=== PATIENT | male | born 1970 | race Caucasian/White ===

== ENCOUNTER 2016-06-05 20:45 | Day surgery (SDC) | payer BC ==
[~2016-06-05] VITALS: Ht 170.2 cm; Wt 109.2 kg
[~2016-06-05 20:45] MED LIST: ALLP300T PO; NF-ESOM40C PO; OMEP-10 PO; PNT40TEC PO; PROM25SU10 RC; SCR1T PO; SCR1T1 PO; SUCR1TAB36 PO
[2016-06-05] MEDS ORDERED: FAMOTIDINE 20MG/2ML IV (PEPCID) IV STA (21:16)
[2016-06-05] MEDS ORDERED: NS IV 1000 ML 1,000 ML IV ONE (21:16)
[2016-06-05] MEDS ORDERED: fentaNYL INJECTION 100 MCG/2 ML AMP IVP STA ×2 (21:16→22:19)
[2016-06-05 21:23] LABS: BASOPHILS % (AUTO) 0 % (0-10); EOSINOPHILS % (AUTO) 0 % (0-10); LYMPHOCYTES # (AUTO) 2.4 X 10^3 (1.0-4.0); LYMPHOCYTES % (AUTO) 19 % (12-44); MEAN CORPUSCULAR HEMOGLOBIN 30 PG (25-34); MEAN CORPUSCULAR HGB CONC 36 G/DL (32-36); MEAN CORPUSCULAR VOLUME 83 FL (80-99); MEAN PLATELET VOLUME 8.6 FL (7.4-10.4); MONOCYTES # (AUTO) 0.7 X 10^3 (0.0-1.0); MONOCYTES % (AUTO) 6 % (0-12); NEUTROPHILS # (AUTO) 9.3 X 10^3 (1.8-7.8); NEUTROPHILS % (AUTO) 75 % (42-75); PLATELET COUNT 326 10^3/uL (130-400); RED CELL DISTRIBUTION WIDTH 13.8 % (10.0-14.5); WHITE BLOOD COUNT 12.5 10^3/uL (4.3-11.0)
--- NOTE | 2016-06-05 21:26 | ED Abdominal Pain ---
General Chief Complaint: Abdominal/GI Problems Stated Complaint: VOMITING Source of Information: Patient, Family Exam Limitations: Other (anxiety) History of Present Illness Time Seen By Provider: 21:14 Initial Comments Here with report of a month of upper abdominal pain that moves around. It is associated with nausea and vomiting. He has had previous history of similar but had his gallbladder out was relatively pain free for a year. Currently he has therapy for H. pylori infections but states that this is not helping. Denies blood in his vomit. States pain is quite severe right now and needs something for pain. Timing/Duration: Getting Worse, Intermittent, Other (one month) Severity/Quality: Moderate, Severe, Aching, Burning Location: Epigastric Radiation: RLQ, LLQ Activities at Onset: None Modifying Factors: Worsens With Eating Associated Symptoms: No Back Pain, No Chest Pain, No Fever/Chills, Nausea/ VomitingNo Swelling/Mass in Abdomen, No Weakness Allergies and Home Medications Allergies Coded Allergies: No Known Drug Allergies (Unverified , 10/26/09) Home Medications (Reported) Allopurinol 100 Mg Tablet 100 MG PO BID (Reported) Amoxicillin 500 Mg Capsule 1,000 MG PO BID (Reported) Clarithromycin 500 Mg Tablet 500 MG PO BID (Reported) Omeprazole 20 Mg Capsule.dr 30Days 20 MG PO BID (Reported) Promethazine HCl 25 Mg Tablet 12.5 MG PO Q6H PRN PRN NAUSEA/VOMITING (Reported) Review of Systems Constitutional: see HPINo chills, No fever EENTM: No Symptoms Reported Respiratory: No Symptoms Reported Cardiovascular: No Symptoms Reported Gastrointestinal: See HPI Abdominal PainDenies Diarrhea, NauseaDenies Rectal Bleeding, Vomiting Genitourinary: No Symptoms Reported Musculoskeletal: no symptoms reported Skin: no symptoms reported Psychiatric/Neurological: See HPI AnxietyDenies Weakness Endocrine: No Symptoms Reported All Other Systems Reviewed Negative Unless Noted: Yes Past Itzvwkp-Uigeyi-Xikkps Hx Patient Social History Alcohol Use: Occasionally Uses Recreational Drug Use: Yes (marijuana occasional) Smoking Status: Current Everyday Smoker Recent Foreign Travel: No Contact w/Someone Who Travel: No Surgeries HX Surgeries: Yes (lasix eye surgery, ) Surgeries: Gallbladder Respiratory Hx Respiratory Disorders: No Cardiovascular Hx Cardiac Disorders: No Neurological Hx Neurological Disorders: No Reproductive System Hx Reproductive Disorders: Yes Genitourinary Hx Genitourinary Disorders: No Gastrointestinal Hx Gastrointestinal Disorders: Yes Gastrointestinal Disorders: Gastroesophageal Reflux Musculoskeletal Hx Musculoskeletal Disorders: Yes Musculoskeletal Disorders: Gout Endocrine Hx Endocrine Disorders: No HEENT HX ENT Disorders: No Cancer Hx Cancer: No Psychosocial Hx Psychiatric Problems: No Integumentary HX Skin/Integumentary Disorder: No Blood Transfusions Hx Blood Disorders: No Reviewed Nursing Assessment Reviewed/Agree w Nursing PMH: Yes Family Medical History Significant Family History: No Pertinent Family Hx Physical Exam Vital Signs VS - Last 72 Hours, by Label 06/05/16 06/05/16 21:04 22:25 Temp 96.3 96.3 Pulse 82 Resp 20 B/P 148/76 Pulse Ox 97 O2 Delivery Room Air Capillary Refill : General Appearance: WD/WN moderate distress (anxious and crying) HEENT: PERRL/EOMI pharynx normal Neck: full range of motion supple Respiratory: lungs clear normal breath sounds Cardiovascular: regular rate, rhythm no murmur Gastrointestinal: softNo guarding, No rebound, tenderness (epigastric and left upper quadrant) Extremities: non-tender normal inspection Back: normal inspection no CVA tenderness no vertebral tenderness Neurologic/Psychiatric: alert oriented x 3 other (very anxious and crying) Skin: normal color warm/dry Progress/Results/Core Measures Results/Orders Lab Results Laboratory Tests Test 06/05/16 21:13 Range/Units Alanine Aminotransferase (ALT/SGPT) 43 0-55 U/L Albumin 4.6 H 3.2-4.5 G/DL Alkaline Phosphatase 66 40-136 U/L Amylase Level 79 25-125 U/L Anion Gap 12 5-14 MMOL/L Aspartate Amino Transf (AST/SGOT) 21 5-34 U/L BUN/Creatinine Ratio 11 Basophils # (Auto) 0.0 0.0-0.1 10^3/uL Basophils (%) (Auto) 0 0-10 % Blood Urea Nitrogen 11 7-18 MG/DL C-Reactive Protein High Sensitivity 0.41 0.00-0.50 MG/DL Calcium Level 9.7 8.5-10.1 MG/DL Carbon Dioxide Level 25 21-32 MMOL/L Chloride Level 104 98-107 MMOL/L Creatinine 0.99 0.60-1.30 MG/DL Eosinophils # (Auto) 0.0 0.0-0.3 10^3/uL Eosinophils (%) (Auto) 0 0-10 % Estimat Glomerular Filtration Rate > 60 Glucose Level 144 H 70-105 MG/DL Hematocrit 45 40-54 % Hemoglobin 16.3 13.3-17.7 G/DL Lipase 33 8-78 U/L Lymphocytes # (Auto) 2.4 1.0-4.0 X 10^3 Lymphocytes (%) (Auto) 19 12-44 % Magnesium Level 2.1 1.8-2.4 MG/DL Mean Corpuscular Hemoglobin 30 25-34 PG Mean Corpuscular Hemoglobin Concent 36 32-36 G/DL Mean Corpuscular Volume 83 80-99 FL Mean Platelet Volume 8.6 7.4-10.4 FL Monocytes # (Auto) 0.7 0.0-1.0 X 10^3 Monocytes (%) (Auto) 6 0-12 % Neutrophils # (Auto) 9.3 H 1.8-7.8 X 10^3 Neutrophils (%) (Auto) 75 42-75 % Platelet Count 326 130-400 10^3/uL Potassium Level 3.7 3.6-5.0 MMOL/L Red Blood Count 5.40 4.35-5.85 10^6/uL Red Cell Distribution Width 13.8 10.0-14.5 % Sodium Level 141 135-145 MMOL/L Total Bilirubin 0.8 0.1-1.0 MG/DL Total Protein 8.2 6.4-8.2 G/DL White Blood Count 12.5 H 4.3-11.0 10^3/uL My Orders Orders-RAEGAN MARINO MD Amylase (06/05/16 21:16) Cbc With Automated Diff (06/05/16 21:16) Comprehensive Metabolic Panel (06/05/16 21:16) Hs C Reactive Protein (06/05/16 21:16) Lipase (06/05/16 21:16) Magnesium (06/05/16 21:16) Saline Lock/Iv-Start (06/05/16 21:16) Ns Iv 1000 Ml (Sodium Chloride 0.9%) (06/05/16 21:16) Ct Abdomen/Pelvis W (06/05/16 21:16) Ondansetron Injection (Zofran Injectio (06/05/16 21:30) Famotidine Injection (Pepcid Injection) (06/05/16 21:16) Fentanyl Injection (Sublimaze Injection (06/05/16 21:16) Lorazepam Injection (Ativan Injection) (06/05/16 21:30) Iohexol Injection (Omnipaque 350 Mg/Ml 1 (06/05/16 22:00) Ns (Ivpb) (Sodium Chloride 0.9% Ivpb Bag (06/05/16 22:00) Fentanyl Injection (Sublimaze Injection (06/05/16 22:19) Pantoprazole Injection (Protonix Injecti (06/05/16 22:30) Medications Given in ED Current Medications Medications Dose Ordered Sig/Andie Route Start Time Stop Time Status Last Admin Dose Admin Iohexol 100 ml ONCE ONCE IV 06/05/16 22:00 06/05/16 22:01 DC 06/05/16 21:52 100 ML Lorazepam 0.5 mg ONCE ONCE IVP 06/05/16 21:30 06/05/16 21:31 DC 06/05/16 21:25 0.5 MG Ondansetron HCl 4 mg ONCE ONCE IVP 06/05/16 21:30 06/05/16 21:31 DC 06/05/16 21:25 4 MG Pantoprazole 40 mg ONCE ONCE IV 06/05/16 22:30 06/05/16 22:31 06/05/16 22:27 40 MG Sodium Chloride 100 ml ONCE ONCE IV 06/05/16 22:00 06/05/16 22:01 DC 06/05/16 21:52 80 ML Sodium Chloride 1,000 ml @ 0 mls/hr Q0M ONCE IV 06/05/16 21:16 06/05/16 21:18 DC 06/05/16 21:24 999 MLS/HR Vital Signs/I&O Vital Sign - Last 12Hours 06/05/16 06/05/16 21:04 22:25 Temp 96.3 96.3 Pulse 82 Resp 20 B/P 148/76 Pulse Ox 97 O2 Delivery Room Air Progress Note : Progress Note Seen and evaluated. IV, labs, normal saline 1 L bolus, Pepcid 20 mg IV, Zofran 4 mg IV, fentanyl 75 g IV and Ativan 0.[address] abdomen and pelvis with contrast ordered. Monitor patient. 2222: Discussed case with Dr. Diallo. We'll admit the patient for observation overnight and surgical evaluation tomorrow. Patient is having persistent pain. Repeat fentanyl [address] was negative and labs do not indicate any significant findings. I did discuss with him about marijuana use and avoidance as this may be part of the problem. He verbalizes understanding. Diagnostic Imaging Diagonstic Imaging: CT Plain Films/CT/US/NM/MRI: abdomen, pelvis Comments [facility] [place], [place] NAME: [facility]EL[facility] REC#: [id number] PT STATUS: REG ER : 1970 PHYSICIAN: RAEGAN MARINO MD ADMIT DATE: 06/05/16/ER Draft Date of Exam:06/05/16 CT ABDOMEN/PELVIS W PROCEDURE: CT abdomen and pelvis with contrast. TECHNIQUE: Multiple contiguous axial images were obtained through the abdomen and pelvis after administration of intravenous contrast. INDICATION: Abdominal pain. FINDINGS: The previous CT abdomen/pelvis exam of 12/30/14 failed to show any sign of an acute abnormality in the abdomen or pelvis. Reportedly, in the interval since the prior exam, the patient has undergone a cholecystectomy.. On this exam, there is no mass or abscess in the gallbladder fossa. Surgical clips are evident. The liver is not enlarged. The small rounded area of low density in the right lobe of the liver, seen previously, is again evident and no different. Most likely this is a cyst. The spleen, pancreas, adrenals, kidneys, aorta and inferior vena cava show no sign of an acute abnormality. The stomach is partially filled with fluid and consequently difficult to assess. The appendix was visualized and is not abnormally thickened. There are a few diverticula in the sigmoid and descending colon but there is no evidence for acute diverticulitis. There are a few fluid-filled segments of small bowel. This appearance is nonspecific. This could be secondary to a mild ileus, perhaps related to enteritis. There is no pelvic mass or free fluid collection noted. The urinary bladder and prostate gland are grossly unremarkable. Bone windows show no sign of a fracture or of a destructive lesion. The lung bases are clear. IMPRESSION: 1. There are postoperative changes consistent with an interval cholecystectomy. There is no mass or abscess involving the gallbladder fossa. 2. There are a few fluid-filled segments of small bowel present. There is no sign of a bowel obstruction and this appearance is nonspecific. The possibility that there is a mild ileus, perhaps secondary to enteritis, should be considered. There is no acute abnormality in the abdomen or pelvis noted otherwise. 3. There is diverticulosis of the sigmoid and descending colon without evidence for acute diverticulitis. 4. These results were discussed with Dr. Marino in the ER. Dictated on workstation # [id number] Dict: 06/05/16 2159 Trans: 06/05/16 2214 [facility] [id number] Interpreted by: KWASI LUDWIG MD Electronically signed by: Reviewed: Reviewed by Me, Discussed w/Radiologist Departure Communication Time/Spoke to Admitting Phy: 22:17 Impression Impression: Primary Impression: Intractable abdominal pain Disposition: HOME, SELF-CARE Condition: Stable Decision to Admit Reason: Admit from ER (General) Decision to Admit/Date: Jun 05, 2016 Time/Decision to Admit Time: 22:17 Departure-Patient Inst. Referrals: OCTAVIA DIALLO DO (PCP/Family) Primary Care Physician RAEGAN MARINO MD Jun 05, 2016 21:26
[2016-06-05] MEDS ORDERED: ONDANSETRON 4 MG/2 ML (SDV) Z0FRAN IVP ONE (21:30)
[2016-06-05] MEDS ORDERED: LORazepam INJ 2 MG/ML (ATIVAN) VIAL IVP ONE (21:30)
[2016-06-05] MEDS ORDERED: AMOX500C2 PO (21:42)
[2016-06-05] MEDS ORDERED: Ibuprofen (21:42)
[2016-06-05] MEDS ORDERED: ALLO100T PO (21:42)
[2016-06-05] MEDS ORDERED: PROM25TA14 PO (21:42)
[2016-06-05] MEDS ORDERED: CLAR-19 PO (21:42)
[2016-06-05 21:44] LABS: ALANINE AMINOTRANSFERASE 43 U/L (0-55); ALBUMIN 4.6 G/DL (3.2-4.5); AMYLASE 79 U/L (25-125); ANION GAP 12 MMOL/L (5-14); ASPARTATE AMINO TRANSFERASE 21 U/L (5-34); BILIRUBIN,TOTAL 0.8 MG/DL (0.1-1.0); BLOOD UREA NITROGEN 11 MG/DL (7-18); BUN/CREATININE RATIO 11; CALCIUM 9.7 MG/DL (8.5-10.1); CARBON DIOXIDE 25 MMOL/L (21-32); CHLORIDE 104 MMOL/L (98-107); CREATININE SERUM 0.99 MG/DL (0.60-1.30); GFR ESTIMATED > 60; GLUCOSE 144 MG/DL (70-105); LIPASE 33 U/L (8-78); MAGNESIUM 2.1 MG/DL (1.8-2.4); POTASSIUM 3.7 MMOL/L (3.6-5.0); SODIUM 141 MMOL/L (135-145); TOTAL PROTEIN 8.2 G/DL (6.4-8.2); hs C REACTIVE PROTEIN 0.41 MG/DL (0.00-0.50)
[2016-06-05] MEDS ORDERED: IOHEXOL 350 MG/ML 100 ML (OMNIPAQUE 350) VIAL IV ONE (22:00)
[2016-06-05] MEDS ORDERED: NS 100 ML (IVPB) BAG IV ONE (22:00)
--- NOTE | 2016-06-05 22:15 | Diagnostic Imaging Report ---
PROCEDURE: CT abdomen and pelvis with contrast. TECHNIQUE: Multiple contiguous axial images were obtained through the abdomen and pelvis after administration of intravenous contrast. INDICATION: Abdominal pain. FINDINGS: The previous CT abdomen/pelvis exam of 12/30/14 failed to show any sign of an acute abnormality in the abdomen or pelvis. Reportedly, in the interval since the prior exam, the patient has undergone a cholecystectomy.. On this exam, there is no mass or abscess in the gallbladder fossa. Surgical clips are evident. The liver is not enlarged. The small rounded area of low density in the right lobe of the liver, seen previously, is again evident and no different. Most likely this is a cyst. The spleen, pancreas, adrenals, kidneys, aorta and inferior vena cava show no sign of an acute abnormality. The stomach is partially filled with fluid and consequently difficult to assess. The appendix was visualized and is not abnormally thickened. There are a few diverticula in the sigmoid and descending colon but there is no evidence for acute diverticulitis. There are a few fluid-filled segments of small bowel. This appearance is nonspecific. This could be secondary to a mild ileus, perhaps related to enteritis. There is no pelvic mass or free fluid collection noted. The urinary bladder and prostate gland are grossly unremarkable. Bone windows show no sign of a fracture or of a destructive lesion. The lung bases are clear. IMPRESSION: 1. There are postoperative changes consistent with an interval cholecystectomy. There is no mass or abscess involving the gallbladder fossa. 2. There are a few fluid-filled segments of small bowel present. There is no sign of a bowel obstruction and this appearance is nonspecific. The possibility that there is a mild ileus, perhaps secondary to enteritis, should be considered. There is no acute abnormality in the abdomen or pelvis noted otherwise. 3. There is diverticulosis of the sigmoid and descending colon without evidence for acute diverticulitis. 4. These results were discussed with Dr. English in the ER. Dictated by: Dictated on workstation # [id number]
[2016-06-05] MEDS ORDERED: PANTOPRAZOLE 40 MG/10 ML (PROTONIX) VIAL IV ONE (22:30)
[2016-06-05 23:30] VITALS: BP 187/84
[2016-06-06] MEDS ORDERED: CATHETER FLUSH 10 ML SYR IV PRN (00:30)
[2016-06-06] MEDS: ONDANSETRON 4 MG/2 ML (SDV) Z0FRAN IV PRN ×5 (00:41→19:18)
[2016-06-06] MEDS: fentaNYL INJECTION 100 MCG/2 ML AMP IV PRN ×9 (00:41→21:44)
[2016-06-06] MEDS: NS IV 1000 ML 1,000 ML IV SCH ×4 (00:41→20:34)
[2016-06-06 04:25] VITALS: BP 183/82
[2016-06-06] MEDS: CATHETER FLUSH 10 ML SYR IV SCH ×3 (06:00→20:35)
[2016-06-06 06:38] LABS: BASOPHILS % (AUTO) 0 % (0-10); EOSINOPHILS % (AUTO) 0 % (0-10); LYMPHOCYTES # (AUTO) 0.9 X 10^3 (1.0-4.0); LYMPHOCYTES % (AUTO) 10 % (12-44); MEAN CORPUSCULAR HEMOGLOBIN 29 PG (25-34); MEAN CORPUSCULAR HGB CONC 35 G/DL (32-36); MEAN CORPUSCULAR VOLUME 84 FL (80-99); MEAN PLATELET VOLUME 8.9 FL (7.4-10.4); MONOCYTES # (AUTO) 0.2 X 10^3 (0.0-1.0); MONOCYTES % (AUTO) 3 % (0-12); NEUTROPHILS # (AUTO) 8.5 X 10^3 (1.8-7.8); NEUTROPHILS % (AUTO) 88 % (42-75); PLATELET COUNT 302 10^3/uL (130-400); RED BLOOD COUNT 5.37 10^6/uL (4.35-5.85); RED CELL DISTRIBUTION WIDTH 13.8 % (10.0-14.5); WHITE BLOOD COUNT 9.7 10^3/uL (4.3-11.0)
[2016-06-06 07:01] LABS: ALANINE AMINOTRANSFERASE 37 U/L (0-55); ALBUMIN 4.6 G/DL (3.2-4.5); ANION GAP 11 MMOL/L (5-14); ASPARTATE AMINO TRANSFERASE 19 U/L (5-34); BILIRUBIN,TOTAL 0.6 MG/DL (0.1-1.0); BLOOD UREA NITROGEN 9 MG/DL (7-18); BUN/CREATININE RATIO 11; CALCIUM 9.4 MG/DL (8.5-10.1); CARBON DIOXIDE 23 MMOL/L (21-32); CHLORIDE 104 MMOL/L (98-107); CREATININE SERUM 0.79 MG/DL (0.60-1.30); GFR ESTIMATED > 60; GLUCOSE 145 MG/DL (70-105); POTASSIUM 3.9 MMOL/L (3.6-5.0); SODIUM 138 MMOL/L (135-145)
[2016-06-06] MEDS ORDERED: FLU TRIvalent (5 YOA+) 2016-17 (AFLURIA) 0.5 ML IM ONE (07:15)
[2016-06-06 07:49] LABS: BAND NEUTROPHILS 0 %; BASOPHILS % (MANUAL) 1 %; EOSINOPHILS % (MANUAL) 0 %; LYMPHOCYTES % (MANUAL) 5 %; NEUTROPHILS % (MANUAL) 94 %
[2016-06-06 08:00] VITALS: BP 139/88
--- NOTE | 2016-06-06 08:13 | History & Physicial ---
History of Present Illness History of Present Illness Reason for visit/HPI patient has severe abdominal pain with nausea and vomiting. Seen at work at blood tests showing white blood cell count low. Patient put on medicine for H. pylori Patient having diarrhea and vomiting and upper abdominal pain. Patient had surgery gallbladder 2 years ago. Patient last night having severe abdominal pain. This is started before [facility]. Patient has sonogram at [place] previously. Patient never misses work but has missed 10 days work recently due to this abdominal pain. Allergic to medications denies. Medications now on for H. pylori. Surgeries gallbladder and knee. Family history denies asthma TB diabetes heart disease lung disease cancer Date of Admission Jun 05, 2016 at 22:50 I consulted on this patient on 06/06/16 08:09 Attending Physician Ernesto Diallo DO Admitting Physician Ernesto Diallo DO Consult Allergies and Home Medications Allergies Coded Allergies: No Known Drug Allergies (Unverified , 10/26/09) Home Medications (Reported) Allopurinol 100 Mg Tablet 100 MG PO BID (Reported) Amoxicillin 500 Mg Capsule 1,000 MG PO BID (Reported) Clarithromycin 500 Mg Tablet 500 MG PO BID (Reported) Omeprazole 20 Mg Capsule.dr 30Days 20 MG PO BID (Reported) Promethazine HCl 25 Mg Tablet 12.5 MG PO Q6H PRN PRN NAUSEA/VOMITING (Reported) Past Jiggqhj-Ohhnch-[place] Hx Patient Social History Marrital Status: Employed/Student: employed Alcohol Use: Occasionally Uses Recreational Drug Use: Yes (marijuana occasional) Smoking Status: Never a Smoker Physical Abuse Screen: No Sexual Abuse: No Recent Foreign Travel: No Contact w/other who traveled: No Recent Hopitalizations: No (chronic upper abd pain) Recent Infectious Disease Expo: No Seasonal Allergies Seasonal Allergies: No Surgeries HX Surgeries: Yes (lasix eye surgery, ) Surgeries: Gallbladder Respiratory Hx Respiratory Disorders: No Cardiovascular Hx Cardiovascular Disorders: No Neurological Hx Neurological Disorders: No Reproductive System Hx Reproductive Disorders: Yes Genitourinary Hx Genitourinary Disorders: No Gastrointestinal Hx Gastrointestinal Disorders: Yes Gastrointestinal Disorders: Gastroesophageal Reflux Musculoskeletal Hx Musculoskeletal Disorders: Yes Musculoskeletal Disorders: Gout Endocrine Hx Endocrine Disorders: No HEENT HX ENT Disorders: No Cancer Hx Cancer: No Psychosocial Hx Psychiatric Problems: No Integumentary HX Skin/Integumentary Disorder: No Blood Transfusions Hx Blood Disorders: No Reviewed Nursing Assessment Reviewed/Agree w Nursing PMH: Yes Family Medical History Significant Family History: No Pertinent Family Hx Constitutional: dizziness weakness EENTM: no symptoms reported Cardiovascular: no symptoms reported Gastrointestinal: RUQ LUQ Genitourinary: no symptoms reported Physical Exam Vital Signs Vital Sign - Last 12Hours 06/05/16 21:04 Temp 96.3 Pulse 82 Resp 20 B/P 148/76 Pulse Ox 97 O2 Delivery Room Air Capillary Refill : Less Than 3 Seconds General Appearance: No Apparent Distress WD/WN Eyes: Bilateral Eye Normal Inspection HEENT: TMs Normal Normal ENT Inspection Neck: Full Range of Motion Normal Inspection Non Tender Respiratory: Chest Non Tender Lungs Clear Normal Breath Sounds No Accessory Muscle Use No Respiratory Distress Cardiovascular: Regular Rate, Rhythm No Murmur Gastrointestinal: Non Tender Soft Assessment/Plan Assessment and Plan severe abdominal pain. Acute gastroenteritis. Abdominal pain in upper region. Clinical Quality Measures DVT/VTE Risk/Contraindication: Risk Factor Score Per Nursin RFS Level Per Nursing on Admit: 2=Moderate ERNESTO DIALLO DO Jun 06, 2016 08:13
[2016-06-06] MEDS: PANTOPRAZOLE 40 MG/10 ML (PROTONIX) VIAL IV SCH ×2 (08:14→20:34)
[2016-06-06] MEDS ORDERED: FOLI-88 PO (08:42)
[2016-06-06] MEDS: ENOXAPARIN 40 MG/0.4 ML (LOVENOX) SYR SC SCH (10:48)
[2016-06-06 12:00] VITALS: BP 117/66
[2016-06-06 16:00] VITALS: BP 140/86
[2016-06-06 19:56] VITALS: BP 135/87
[2016-06-06] MEDS ORDERED: ZOLPIDEM 5 MG (AMBIEN) TAB PO PRN (21:00)
[2016-06-07] VITALS: BP 119/67
[2016-06-07 04:00] VITALS: BP 121/75
[2016-06-07] MEDS: CATHETER FLUSH 10 ML SYR IV SCH (06:00)
[2016-06-07 06:19] LABS: BASOPHILS % (AUTO) 0 % (0-10); EOSINOPHILS # (AUTO) 0.1 10^3/uL (0.0-0.3); EOSINOPHILS % (AUTO) 1 % (0-10); LYMPHOCYTES # (AUTO) 3.5 X 10^3 (1.0-4.0); LYMPHOCYTES % (AUTO) 39 % (12-44); MEAN CORPUSCULAR HEMOGLOBIN 30 PG (25-34); MEAN CORPUSCULAR HGB CONC 35 G/DL (32-36); MEAN CORPUSCULAR VOLUME 85 FL (80-99); MEAN PLATELET VOLUME 8.7 FL (7.4-10.4); MONOCYTES # (AUTO) 0.5 X 10^3 (0.0-1.0); MONOCYTES % (AUTO) 6 % (0-12); NEUTROPHILS # (AUTO) 4.9 X 10^3 (1.8-7.8); NEUTROPHILS % (AUTO) 54 % (42-75); PLATELET COUNT 271 10^3/uL (130-400); RED BLOOD COUNT 4.75 10^6/uL (4.35-5.85); RED CELL DISTRIBUTION WIDTH 13.9 % (10.0-14.5)
--- NOTE | 2016-06-07 06:38 | CONSULTATION REPORT ---
DATE OF CONSULTATION: 06/06/2016 DIAGNOSIS: Epigastric pain with nausea. HISTORY OF THE PRESENT ILLNESS: I have been asked by Dr. Pineda to see this gentleman admitted with unresolved upper abdominal pain over several months. About two years ago, he developed severe dyskinesia of the gallbladder and obtained relief from laparoscopic cholecystectomy. Over the last several weeks, he has suffered epigastric pain associated with nausea, mainly precipitated by food. PHYSICAL EXAMINATION: On examination he is reasonably comfortable. VITAL SIGNS: His vital signs are stable and he is afebrile. ABDOMINAL EXAMINATION: Reveals mild epigastric tenderness but. DIFFERENTIAL DIAGNOSIS: Would include gastritis, gastric ulcers and H. pylori infection. With these in mind, it is reasonable to perform an upper endoscopy. I have discussed this with him and the procedure is scheduled for 06/07/2016. Job ID: [id number] Dictated Date: 06/06/2016 15:34:51 Oracle Technical Architect Date: 06/07/2016 06:34:20/donnie OWENS
[2016-06-07 06:42] LABS: ALANINE AMINOTRANSFERASE 30 U/L (0-55); ALBUMIN 3.6 G/DL (3.2-4.5); ANION GAP 11 MMOL/L (5-14); ASPARTATE AMINO TRANSFERASE 16 U/L (5-34); BILIRUBIN,TOTAL 0.7 MG/DL (0.1-1.0); BLOOD UREA NITROGEN 13 MG/DL (7-18); BUN/CREATININE RATIO 17; CALCIUM 8.4 MG/DL (8.5-10.1); CARBON DIOXIDE 21 MMOL/L (21-32); CHLORIDE 106 MMOL/L (98-107); CREATININE SERUM 0.77 MG/DL (0.60-1.30); GFR ESTIMATED > 60; GLUCOSE 92 MG/DL (70-105); POTASSIUM 3.6 MMOL/L (3.6-5.0); SODIUM 138 MMOL/L (135-145); TOTAL PROTEIN 6.1 G/DL (6.4-8.2)
[2016-06-07] MEDS ORDERED: MIDAZOLAM 2 MG/2 ML (VERSED) VIAL ONE ×3 (07:12)
[2016-06-07] MEDS ORDERED: fentaNYL INJECTION 100 MCG/2 ML AMP ONE (07:12)
[2016-06-07] MEDS ORDERED: fentaNYL INJECTION 100 MCG/2 ML AMP INJ ONE (07:12)
[2016-06-07] MEDS ORDERED: LIDOCAINE JELLY 2% (XYLOCAINE) 5 ML TUBE ONE (07:13)
[2016-06-07] MEDS ORDERED: HURRICAINE EXT TUBE (BENZOCAINE) ONE (07:13)
[2016-06-07] MEDS ORDERED: NS IV 500 ML 500 ML ONE (07:13)
[2016-06-07] MEDS ORDERED: NS IV 500 ML 500 ML IV PRN (07:15)
[2016-06-07] MEDS: fentaNYL INJECTION 100 MCG/2 ML AMP IVP PRN ×2 (07:21→07:24)
[2016-06-07] MEDS: MIDAZOLAM 2 MG/2 ML (VERSED) VIAL IVP PRN ×3 (07:22→07:28)
--- NOTE | 2016-06-07 07:25 | Pre-Op Note & Conscious Sedat ---
Pre-Operative Progress Note H&P Reviewed The H&P was reviewed, patient examined and no changes noted. Date H&P Reviewed: Jun 07, 2016 Time H&P Reviewed: 07:24 Pre-Op Diagnosis: epigastric pain Conscious Sedation Pre-Proced ASA Class: 2 Airway Mallampati Classification: ([place] appropriate class) I. II. III, IV Lungs Heart ASA score ASA 1: a normal healthy patient ASA 2: a patient with a mild systemic disease (mid diabetes, controlled hypertension, obesity ASA 3: a patient with a severe systemic disease that limits activity (angina , COPD, prior Myocardial infarction) ASA 4: a patient with an incapacitating disease that is a constant threat to life (CHF, renal failure) ASA 5: a moribund patient not expected to survive 24 hrs. (ruptured aneurysm) ASA 6: a declared brain patient whose organs are being harvested. For emergent operations, add the letter E after the classification Grade 2 Sedation Plan: Discussed options with patient/fam Note The patient is an appropriate candidate to undergo the planned procedure, sedation, and anesthesia. The patient immediately re-assessed prior to indication. EVARISTO GALLO MD Jun 07, 2016 7:25 am
--- NOTE | 2016-06-07 07:37 | Progress Note-Post Operative ---
Post-Operative Progess Note Pre-Operative Diagnosis epigastric pain Post-Operative Diagnosis grade 2 esophagitis. Diffuse gastritis. Distal erosions Post-Op Procedure Note Date of Procedure: Jun 07, 2016 Name of Procedure: EGD with antral biopsy Anesthesia Type sedation Specimen(s) collected antral mucosa EVARISTO GALLO MD Jun 07, 2016 7:37 am
[2016-06-07] MEDS ORDERED: PANT40TA2 PO (07:41)
[2016-06-07] MEDS ORDERED: SUCR1TAB36 PO (07:42)
--- NOTE | 2016-06-07 07:43 | Progress Note (SOAP) ---
Subjective Subjective/Events-last exam patient had EGD done this morning and shows gastritis and esophagitis. Patient to be put on proton pump inhibitor and Carafate Objective Exam Vital Signs Date Time Temp Pulse Resp B/P Pulse Ox O2 Delivery O2 Flow Rate FiO2 06/07/16 04:00 97.1 66 18 121/75 96 Room Air 06/07/16 00:00 97.7 66 18 119/67 98 Room Air 06/06/16 21:00 Room Air 06/06/16 19:56 98.1 72 18 135/87 94 Room Air 06/06/16 16:00 98.9 80 18 140/86 96 Room Air 06/06/16 12:00 98.1 73 16 117/66 96 Room Air 06/06/16 09:00 Room Air 06/06/16 08:00 98.0 83 20 139/88 96 Room Air I & O 06/07/16 07:00 Intake Total 2950 ml Output Total 1100 ml Balance 1850 ml Capillary Refill : Less Than 3 Seconds General Appearance: No Apparent Distress WD/WN Results Lab Laboratory Tests 06/07/16 05:18: Alanine Aminotransferase (ALT/SGPT) 30, Albumin 3.6, Alkaline Phosphatase 53, Anion Gap 11, Aspartate Amino Transf (AST/SGOT) 16, BUN/Creatinine Ratio 17, Basophils # (Auto) 0.0, Basophils (%) (Auto) 0, Blood Urea Nitrogen 13, Calcium Level 8.4L, Carbon Dioxide Level 21, Chloride Level 106, Creatinine 0.77, Eosinophils # (Auto) 0.1, Eosinophils (%) (Auto) 1, Estimat Glomerular Filtration Rate > 60, Glucose Level 92, Hematocrit 40, Hemoglobin 14.2, Lymphocytes # (Auto) 3.5, Lymphocytes (%) (Auto) 39, Mean Corpuscular Hemoglobin 30, Mean Corpuscular Hemoglobin Concent 35, Mean Corpuscular Volume 85, Mean Platelet Volume 8.7, Monocytes # (Auto) 0.5, Monocytes (%) (Auto) 6, Neutrophils # (Auto) 4.9, Neutrophils (%) (Auto) 54, Platelet Count 271, Potassium Level 3.6, Red Blood Count 4.75, Red Cell Distribution Width 13.9, Sodium Level 138, Total Bilirubin 0.7, Total Protein 6.1L, White Blood Count 9.0 Assessment/Plan Assessment/Plan Assess & Plan/Chief Complaint had EGD done this morning Diagnosis/Problems: Clinical Quality Measures DVT/VTE Risk/Contraindication: Risk Factor Score Per Nursin RFS Level Per Nursing on Admit: 2=Moderate OCTAVIA DIALLO DO Jun 07, 2016 07:43
--- NOTE | 2016-06-07 07:43 | Discharge Inst-Simple/Standard ---
Discharge Inst-Standard Discharge Medications New, Converted or Re-Newed RX: RX on Chart Patient Instructions/Follow Up Plan of Care/Instructions/FU: follow-up with Dr. Pineda in a week Activity as Tolerated: Yes Discharge Diet: No Restrictions EVARISTO GALLO MD Jun 07, 2016 7:43 am
[2016-06-07] MEDS ORDERED: LIDOCAINE JELLY 2% (XYLOCAINE) 5 ML TUBE MM PRN (07:45)
[2016-06-07] MEDS ORDERED: FLUMAZENIL (ROMAZICON) 0.1 MG/ML 5 ML VIAL INJ PRN (07:45)
[2016-06-07] MEDS ORDERED: HURRICAINE EXT TUBE (BENZOCAINE) XX PRN (07:45)
[2016-06-07] MEDS ORDERED: NALOXONE 0.4 MG/ML 1 ML (NARCAN) VIAL IVP PRN (07:45)
[2016-06-07 08:00] VITALS: BP 136/83
[2016-06-07] MEDS: PANTOPRAZOLE 40 MG/10 ML (PROTONIX) VIAL IV SCH (08:30)
[2016-06-07] MEDS: ENOXAPARIN 40 MG/0.4 ML (LOVENOX) SYR SC SCH (08:31)
[2016-06-07] MEDS ORDERED: SUCRALFATE 1 GM (CARAFATE) TAB PO SCH (09:00)
--- NOTE | 2016-06-07 10:06 | OPERATIVE REPORT ---
PROCEDURE PHYSICIAN: EVARISTO GALLO DATE OF PROCEDURE: 06/07/2016 PROCEDURE: Upper GI endoscopy with antral biopsy. SURGEON: Paramjit INDICATION FOR THE PROCEDURE: This gentleman has been admitted with ongoing epigastric pain, nausea and vomiting. Therefore, an upper endoscopy was felt to be reasonable to evaluate his symptoms. Informed consent was obtained after reviewing the procedure in detail. DESCRIPTION OF PROCEDURE: He was placed in left lateral decubitus position and his vital signs were monitored. Conscious sedation was achieved using Versed and fentanyl. The flexible gastroscope was introduced down the esophagus, past the stomach, into the proximal duodenum. FINDINGS: ESOPHAGUS: Grade 2 esophagitis. STOMACH: 1. Diffuse gastritis of moderate severity. 2. A few distal erosions were found. There was no fran ulceration. Antral biopsy was obtained for Helicobacter status. DUODENUM: Normal. He tolerated the procedure well and was taken back to the nursing area in a stable condition. IMPRESSION: 1. Epigastric pain and nausea. 2. Diffuse gastritis and esophagitis. 3. Helicobacter status pending. Job ID: [id number] Dictated Date: 06/07/2016 07:36:33 Account Information Clerk Date: 06/07/2016 10:02:44 / donnie OWENS
== END 2016-06-07 10:50 | disposition home or self-care (01) ==
LOC: EDUNIT# 20:45 → ER 20:46 → UNDOADMOB 22:50 → 4TH 22:50 → UNDOADMOB 23:35 → 4TH 23:35 → SDC 23:35 → UNDODISOB 06-07 10:50
PROVIDERS: ATTEND Family Medicine
DX: K20.8 Other esophagitis (principal); K29.60 Other gastritis without bleeding; K52.89 Other specified noninfective gastroenteritis and colitis
CPT/HCPCS: 36415; 74177; 80053; 82150; 83690; 83735; 85007; 85025; 85027; 86141; 86677; 96361; 96374; 96375; 96376; G0378

== ENCOUNTER 2018-06-01 12:06 | Emergency (ER) | payer BC ==
[~2018-06-01] VITALS: Ht 170.2 cm; Wt 108.9 kg
[~2018-06-01 12:06] MED LIST changes: +ALLO100T PO; +AMOX500C2 PO; +CLAR-19 PO; +FOLI-88 PO; +Ibuprofen; +PANT40TA2 PO; +PROM25TA14 PO
--- OUTSIDE RECORDS SUMMARY | 2018-06-01 12:12 | XMS REPORT | Continuity of Care Document ---
Author Author [facility] Organization [facility] Address Unknown Phone Unavailable Allergies Active Description Code Type Severity Reaction Onset Reported/Identified Relationship to Patient Clinical Status Yes NO KNOWN DRUG ALLERGIES UNKNOWN NO KNOWN DRUG ALLERG Yes No Known Drug Allergies [id number] Drug Allergy Unknown N/A 10/26/2009 Medications Medication Packaging Start Date Stop Date Route Dosage Sig FAMOTIDINE VIAL INJ 20 MG/2CC (PEPCID VIAL) MG 05/27/2018 05/27/2018 ONCE&1158 ONDANSETRON VIAL INJ 4 MG/2CC (ZOFRAN 2CC VIAL) MG 05/27/2018 05/27/2018 PRN ONCE LORAZEPAM 1CC VIAL INJ 2 MG/CC (ATIVAN VIAL) MG 05/27/2018 05/27/2018 PRN ONCE NORMAL SALINE 1000CC IV BAG INJ 0.9 % (NS 1000CC IV BAG) ml 05/27/2018 06/11/2018 CONTINUOUSEVERY 0 Hour FENTANYL INJ 100 MCG/2CC VIAL MCG 05/27/2018 05/27/2018 ONCE&1231 Problems Date Dx Coded Attending Type Code Diagnosis Diagnosed By 01/09/2015 EDUARDO IRENE APRN Ot 305.20 CANNABIS ABUSE-UNSPEC 01/09/2015 EDUARDO IRENE APRN Ot 787.01 NAUSEA WITH VOMITING 02/02/2015 TREVOR MCGARRY DO Ot 789.00 06/05/2016 TREVOR MCGARRY DO Ot 789.00 ABDOMINAL PAIN, UNSPECIFIED SITE 06/07/2016 OCTAVIA DIALLO DO Ot K20.8 OTHER ESOPHAGITIS 06/07/2016 OCTAVIA DIALLO DO Ot K29.60 OTHER GASTRITIS WITHOUT BLEEDING 06/07/2016 OCTAVIA DIALLO DO Ot K52.89 OTHER SPECIFIED NONINFECTIVE GASTROENTER 06/11/2016 OCTAVIA DIALLO DO Ot K20.8 OTHER ESOPHAGITIS 06/11/2016 OCTAVIA DIALLO DO Ot K29.60 OTHER GASTRITIS WITHOUT BLEEDING 06/11/2016 GELLENDER OCTAVIA NOBLE Ot K52.89 OTHER SPECIFIED NONINFECTIVE GASTROENTER 06/14/2016 OCTAVIA DIALLO DO Ot K20.8 OTHER ESOPHAGITIS 06/14/2016 GELLENDER DOOCTAVIA Ot K29.60 OTHER GASTRITIS WITHOUT BLEEDING 06/14/2016 MICHELLELENDER OCTAVIA NOBLE Ot K52.89 OTHER SPECIFIED NONINFECTIVE GASTROENTER Procedures There is no data. Results Test Result Range Complete blood count (CBC) with automated white blood cell (WBC) differential - 06/05/16 21:13 Blood leukocytes automated count (number/volume) 12.5 10*3/uL 4.3-11.0 Blood erythrocytes automated count (number/volume) 5.40 10*6/uL 4.35-5.85 Venous blood hemoglobin measurement (mass/volume) 16.3 g/dL 13.3-17.7 Blood hematocrit (volume fraction) 45 % 40-54 Automated erythrocyte mean corpuscular volume 83 [foz_us] 80-99 Automated erythrocyte mean corpuscular hemoglobin (mass per erythrocyte) 30 pg 25-34 Automated erythrocyte mean corpuscular hemoglobin concentration measurement ( mass/volume) 36 g/dL 32-36 Automated erythrocyte distribution width ratio 13.8 % 10.0-14.5 Automated blood platelet count (count/volume) 326 10*3/uL 130-400 Automated blood platelet mean volume measurement 8.6 [foz_us] 7.4-10.4 Automated blood neutrophils/100 leukocytes 75 % 42-75 Automated blood lymphocytes/100 leukocytes 19 % 12-44 Blood monocytes/100 leukocytes 6 % 0-12 Automated blood eosinophils/100 leukocytes 0 % 0-10 Automated blood basophils/100 leukocytes 0 % 0-10 Blood neutrophils automated count (number/volume) 9.3 10*3 1.8-7.8 Blood lymphocytes automated count (number/volume) 2.4 10*3 1.0-4.0 Blood monocytes automated count (number/volume) 0.7 10*3 0.0-1.0 Automated eosinophil count 0.0 10*3/uL 0.0-0.3 Automated blood basophil count (count/volume) 0.0 10*3/uL 0.0-0.1 Comprehensive metabolic panel - 06/05/16 21:13 Serum or plasma sodium measurement (moles/volume) 141 mmol/L 135-145 Serum or plasma potassium measurement (moles/volume) 3.7 mmol/L 3.6-5.0 Serum or plasma chloride measurement (moles/volume) 104 mmol/L 98-107 Carbon dioxide 25 mmol/L 21-32 Serum or plasma anion gap determination (moles/volume) 12 mmol/L 5-14 Serum or plasma urea nitrogen measurement (mass/volume) 11 mg/dL 7-18 Serum or plasma creatinine measurement (mass/volume) 0.99 mg/dL 0.60-1.30 Serum or plasma urea nitrogen/creatinine mass ratio 11 NRG Serum or plasma creatinine measurement with calculation of estimated glomerular filtration rate > NRG Serum or plasma glucose measurement (mass/volume) 144 mg/dL 70-105 Serum or plasma calcium measurement (mass/volume) 9.7 mg/dL 8.5-10.1 Serum or plasma total bilirubin measurement (mass/volume) 0.8 mg/dL 0.1-1.0 Serum or plasma alkaline phosphatase measurement (enzymatic activity/volume) 66 U/L 40-136 Serum or plasma aspartate aminotransferase measurement (enzymatic activity/ volume) 21 U/L 5-34 Serum or plasma alanine aminotransferase measurement (enzymatic activity/volume ) 43 U/L 0-55 Serum or plasma protein measurement (mass/volume) 8.2 g/dL 6.4-8.2 Serum or plasma albumin measurement (mass/volume) 4.6 g/dL 3.2-4.5 Magnesium - 06/05/16 21:13 Magnesium 2.1 mg/dL 1.8-2.4 Serum or plasma amylase measurement (enzymatic activity/volume) - 06/05/16 21: 13 Serum or plasma amylase measurement (enzymatic activity/volume) 79 U /L 25-125 Lipase - 06/05/16 21:13 Lipase 33 U/L 8-78 Serum or plasma C reactive protein measurement (mass/volume) - 06/05/16 21:13 Serum or plasma C reactive protein measurement (mass/volume) 0.41 mg /dL 0.00-0.50 Complete blood count (CBC) with automated white blood cell (WBC) differential - 06/06/16 06:12 Blood leukocytes automated count (number/volume) 9.7 10*3/uL 4.3-11.0 Blood erythrocytes automated count (number/volume) 5.37 10*6/uL 4.35-5.85 Venous blood hemoglobin measurement (mass/volume) 15.8 g/dL 13.3-17.7 Blood hematocrit (volume fraction) 45 % 40-54 Automated erythrocyte mean corpuscular volume 84 [foz_us] 80-99 Automated erythrocyte mean corpuscular hemoglobin (mass per erythrocyte) 29 pg 25-34 Automated erythrocyte mean corpuscular hemoglobin concentration measurement ( mass/volume) 35 g/dL 32-36 Automated erythrocyte distribution width ratio 13.8 % 10.0-14.5 Automated blood platelet count (count/volume) 302 10*3/uL 130-400 Automated blood platelet mean volume measurement 8.9 [foz_us] 7.4-10.4 Automated blood neutrophils/100 leukocytes 88 % 42-75 Automated blood lymphocytes/100 leukocytes 10 % 12-44 Blood monocytes/100 leukocytes 3 % 0-12 Automated blood eosinophils/100 leukocytes 0 % 0-10 Automated blood basophils/100 leukocytes 0 % 0-10 Blood neutrophils automated count (number/volume) 8.5 10*3 1.8-7.8 Blood lymphocytes automated count (number/volume) 0.9 10*3 1.0-4.0 Blood monocytes automated count (number/volume) 0.2 10*3 0.0-1.0 Automated eosinophil count 0.0 10*3/uL 0.0-0.3 Automated blood basophil count (count/volume) 0.0 10*3/uL 0.0-0.1 Comprehensive metabolic panel - 06/06/16 06:12 Serum or plasma sodium measurement (moles/volume) 138 mmol/L 135-145 Serum or plasma potassium measurement (moles/volume) 3.9 mmol/L 3.6-5.0 Serum or plasma chloride measurement (moles/volume) 104 mmol/L 98-107 Carbon dioxide 23 mmol/L 21-32 Serum or plasma anion gap determination (moles/volume) 11 mmol/L 5-14 Serum or plasma urea nitrogen measurement (mass/volume) 9 mg/dL 7-18 Serum or plasma creatinine measurement (mass/volume) 0.79 mg/dL 0.60-1.30 Serum or plasma urea nitrogen/creatinine mass ratio 11 NRG Serum or plasma creatinine measurement with calculation of estimated glomerular filtration rate > NRG Serum or plasma glucose measurement (mass/volume) 145 mg/dL 70-105 Serum or plasma calcium measurement (mass/volume) 9.4 mg/dL 8.5-10.1 Serum or plasma total bilirubin measurement (mass/volume) 0.6 mg/dL 0.1-1.0 Serum or plasma alkaline phosphatase measurement (enzymatic activity/volume) 72 U/L 40-136 Serum or plasma aspartate aminotransferase measurement (enzymatic activity/ volume) 19 U/L 5-34 Serum or plasma alanine aminotransferase measurement (enzymatic activity/volume ) 37 U/L 0-55 Serum or plasma protein measurement (mass/volume) 8.0 g/dL 6.4-8.2 Serum or plasma albumin measurement (mass/volume) 4.6 g/dL 3.2-4.5 Blood manual differential performed detection - 06/06/16 06:12 Blood monocytes/100 leukocytes 0 % NRG Manual blood segmented neutrophils/100 leukocytes 94 % NRG Blood band neutrophils/100 leukocytes 0 % NRG Manual blood lymphocytes/100 leukocytes 5 % NRG Manual eosinophils/100 leukocytes in nose 0 % NRG Manual blood basophils/100 leukocytes 1 % NRG Blood erythrocyte morphology finding identification NORMAL NR Serum Helicobacter pylori antibody assay (units/volume) - 06/06/16 06:12 Helicobacter pylori ab [units/volume] in serum 0.38 u[iU]/mL 0.00-0.89 Complete blood count (CBC) with automated white blood cell (WBC) differential - 06/07/16 05:18 Blood leukocytes automated count (number/volume) 9.0 10*3/uL 4.3-11.0 Blood erythrocytes automated count (number/volume) 4.75 10*6/uL 4.35-5.85 Venous blood hemoglobin measurement (mass/volume) 14.2 g/dL 13.3-17.7 Blood hematocrit (volume fraction) 40 % 40-54 Automated erythrocyte mean corpuscular volume 85 [foz_us] 80-99 Automated erythrocyte mean corpuscular hemoglobin (mass per erythrocyte) 30 pg 25-34 Automated erythrocyte mean corpuscular hemoglobin concentration measurement ( mass/volume) 35 g/dL 32-36 Automated erythrocyte distribution width ratio 13.9 % 10.0-14.5 Automated blood platelet count (count/volume) 271 10*3/uL 130-400 Automated blood platelet mean volume measurement 8.7 [foz_us] 7.4-10.4 Automated blood neutrophils/100 leukocytes 54 % 42-75 Automated blood lymphocytes/100 leukocytes 39 % 12-44 Blood monocytes/100 leukocytes 6 % 0-12 Automated blood eosinophils/100 leukocytes 1 % 0-10 Automated blood basophils/100 leukocytes 0 % 0-10 Blood neutrophils automated count (number/volume) 4.9 10*3 1.8-7.8 Blood lymphocytes automated count (number/volume) 3.5 10*3 1.0-4.0 Blood monocytes automated count (number/volume) 0.5 10*3 0.0-1.0 Automated eosinophil count 0.1 10*3/uL 0.0-0.3 Automated blood basophil count (count/volume) 0.0 10*3/uL 0.0-0.1 Comprehensive metabolic panel - 06/07/16 05:18 Serum or plasma sodium measurement (moles/volume) 138 mmol/L 135-145 Serum or plasma potassium measurement (moles/volume) 3.6 mmol/L 3.6-5.0 Serum or plasma chloride measurement (moles/volume) 106 mmol/L 98-107 Carbon dioxide 21 mmol/L 21-32 Serum or plasma anion gap determination (moles/volume) 11 mmol/L 5-14 Serum or plasma urea nitrogen measurement (mass/volume) 13 mg/dL 7-18 Serum or plasma creatinine measurement (mass/volume) 0.77 mg/dL 0.60-1.30 Serum or plasma urea nitrogen/creatinine mass ratio 17 NRG Serum or plasma creatinine measurement with calculation of estimated glomerular filtration rate > NRG Serum or plasma glucose measurement (mass/volume) 92 mg/dL 70-105 Serum or plasma calcium measurement (mass/volume) 8.4 mg/dL 8.5-10.1 Serum or plasma total bilirubin measurement (mass/volume) 0.7 mg/dL 0.1-1.0 Serum or plasma alkaline phosphatase measurement (enzymatic activity/volume) 53 U/L 40-136 Serum or plasma aspartate aminotransferase measurement (enzymatic activity/ volume) 16 U/L 5-34 Serum or plasma alanine aminotransferase measurement (enzymatic activity/volume ) 30 U/L 0-55 Serum or plasma protein measurement (mass/volume) 6.1 g/dL 6.4-8.2 Serum or plasma albumin measurement (mass/volume) 3.6 g/dL 3.2-4.5 Urinalysis - 05/27/18 11:58 Icotest N/A Negative Urine Volume Urine Volume Sufficient (10mL) Urine Yeast No Yeast present Urine-Appearance Slightly Cloudy Clear Urine-Bacteria Trace Urine-Bilirubin Negative Negative Urine-Blood Trace-intact Negative Urine-Color Yellow Colorless-Lt. Yellow Urine-Epithelial Cells 0-5/HPF Urine-Glucose Negative Negative Urine-Ketones 2+ Negative Urine-Leukocytes Negative Negative Urine-Mucus 3+ Urine-Nitrite Negative Negative Urine-Other Urine Saved if Culture Needed (48hrs from time of collection) Urine-pH 6.0 5-8.5 Urine-Protein Negative Negative Urine-RBC 0-2/HPF Urine-Specific [place] 1.010 1.000-1.030 Urine-WBC Rare/HPF Urobilinogen 0.2 0.2-1.0 Comprehensive Metabolic Panel - 05/27/18 12:06 Albumin 4.7 g/dL 3.6-5.1 ALP 66 U/L 35-130 ALT 77 U/L 6-45 Anion Gap 17 6-14 AST 35 U/L 2-40 BUN 14 mg/dL 5-25 Calcium 9.5 mg/dL 8.3-10.4 Chloride 102 mmol/L 95-114 CO2 24 mEq/L 22-33 Creat 0.87 mg/dL 0.50-1.50 eGFR 93 mL/min/1.73m2 >59 Globulin 3.6 g/dL 2.3-3.5 Glucose 115 mg/dL 70-110 Osmo 288 280-295 Potassium 4.0 mmol/L 3.5-5.3 Sodium 139 mmol/L 134-148 TBil 0.8 mg/dL 0.2-1.2 TP 8.3 g/dL 6.0-8.3 Lipase - 05/27/18 12:06 Lipase 27 U/L 7-59 Encounters ACCT No. Visit Date/Time Discharge Status Pt. Type Provider Facility Loc./Unit Complaint [id number] 06/05/2016 23:35:00 06/07/2016 10:50:00 DIS Outpatient OCTAVIA IDALLO DO [facility] SDC INTRACTABLE ABD PAIN [id number] 01/19/2015 08:25:00 01/19/2015 23:59:59 CLS Outpatient TREVOR MCGARRY DO [facility] CARD ABD PAIN [id number] 01/09/2015 16:18:00 01/09/2015 18:26:00 DIS Emergency EDUARDO IRENE APRN [facility] ER VOMITING [id number] 05/27/2018 11:48:00 05/27/2018 14:12:00 DIS Outpatient [facility] ER [id number] 05/14/2016 09:07:00 05/14/2016 23:59:00 DIS Outpatient ROMERO SIDDIQUI [id number] 05/27/2018 12:02:11 Document Registration [email or web address] 01/19/2015 08:20:22 ACT Document Registration
[2018-06-01 12:58] LABS: BASOPHILS % (AUTO) 0 % (0-10); EOSINOPHILS % (AUTO) 0 % (0-10); HEMATOCRIT 43 % (40-54); HEMOGLOBIN 15.4 G/DL (13.3-17.7); LYMPHOCYTES # (AUTO) 2.4 X 10^3 (1.0-4.0); LYMPHOCYTES % (AUTO) 24 % (12-44); MEAN CORPUSCULAR HEMOGLOBIN 30 PG (25-34); MEAN CORPUSCULAR HGB CONC 36 G/DL (32-36); MEAN CORPUSCULAR VOLUME 84 FL (80-99); MEAN PLATELET VOLUME 9.2 FL (7.4-10.4); MONOCYTES # (AUTO) 0.7 X 10^3 (0.0-1.0); MONOCYTES % (AUTO) 8 % (0-12); NEUTROPHILS # (AUTO) 6.5 X 10^3 (1.8-7.8); NEUTROPHILS % (AUTO) 67 % (42-75); PLATELET COUNT 272 10^3/uL (130-400); RED BLOOD COUNT 5.08 10^6/uL (4.35-5.85); RED CELL DISTRIBUTION WIDTH 13.9 % (10.0-14.5); WHITE BLOOD COUNT 9.7 10^3/uL (4.3-11.0)
--- NOTE | 2018-06-01 12:58 | ED Abdominal Pain ---
General Chief Complaint: Abdominal/GI Problems Stated Complaint: N/V Nursing Triage Note: PATIENT HERE WITH REPORTS OF N/V AND ABD PAIN SINCE 05/19.HE STATES HE WENT TO [place] ON 05/27 AND WAS DIAGNOSED WITH GASTRITIS. HE WAS PRESCRIBED ZOFRAN, SUCRAFATE AND PROTONIX BUT HAS NOT HAD ANY RELIEF. HE THEN WENT TO [facility] LAST FRIDAY FOR THE SAME PROBLEM, THEY ALSO TOLD HIM HE HAD GASTRITIS AND TO CONTINUE MEDS. HE COMES TO THE ER BY POV TODAY BECAUSE HE HAS NOT IMPROVED AND REPORTS SHE IS CONCERNED THAT HE IS LOSING WEIGHT FROM NOT EATING ENOUGH FOOD. Sepsis Screen: No Definite Risk Source of Information: Patient, Spouse Exam Limitations: No Limitations History of Present Illness Date Seen by Provider: Jun 01, 2018 Time Seen by Provider: 12:43 Initial Comments The patient presents to ER by private conveyance with chief complaint of abdominal pain and nausea and vomiting and decreased appetite and intake for the past 12 days. He went to [place] [facility] and they gave him Carafate, omeprazole and Zofran. He's been taking the Zofran about 3 or 4 times a day but states it does not work. He does not know that he's ever had a EGD or colonoscopy. Denies any history of irritable bowel syndrome. He went to the ER [facility] where they gave him dicyclomine told him it was gastroenteritis. He was recommended to go follow-up and get a EGD done. He had an appointment with Dr. Beavers today at 2 :00 to discuss getting EGD done. This doctor has seen him in the past. He's had no fevers or chills. No history of pancreatitis. He does drink whiskey occasionally his last drink was about 2 months ago. He does not know his triglycerides are does not have a history of diabetes. He has a gallbladder out in 2014. No known history of ulcers, PUD. Not eating much and he says he just drinks fluids and sometimes stays down and sometimes it does not. He's been having loose stools but his last stool was 2 days ago. Allergies and Home Medications Allergies Coded Allergies: No Known Drug Allergies (Unverified , 10/26/09) Home Medications Allopurinol 100 Mg Tablet, 100 MG PO BID, (Reported) Folic Acid/Multivit-Min/Lutein 1 Each Tab.chew, 1 TAB.CHEW PO DAILY, (Reported) Pantoprazole Sodium 40 Mg Tablet.dr, 40 MG PO DAILY Prescribed by: EVARISTO GALLO on 06/07/16 0741 Sucralfate 1 Gm Tablet, 1 GM PO TID Prescribed by: EVARISTO GALLO on 06/07/16 0742 Patient Home Medication List Home Medication List Reviewed: Yes Review of Systems Review of Systems Constitutional: No chills, No diaphoresis EENTM: No Blurred Vision, No Double Vision Respiratory: Denies Cough, Denies Shortness of Air Cardiovascular: Denies Chest Pain, Denies Lightheadedness Gastrointestinal: See HPI, Abdominal Pain, Diarrhea, Nausea, Poor Appetite, Poor Fluid Intake, Vomiting Genitourinary: Denies Discharge, Denies Drainage Musculoskeletal: No back pain, No joint swelling Past Sulposx-Vzqshg-Efargb Hx Patient Social History Alcohol Use: Occasionally Uses Alcohol Beverage of Choice: Whiskey Recreational Drug Use: No Smoking Status: Former Smoker 2nd Hand Smoke Exposure: No Recent Foreign Travel: No Contact w/Someone Who Travel: No Recent Infectious Disease Expo: No Recent Hopitalizations: No (chronic upper abd pain) Physical Abuse: No Sexual Abuse: No Seasonal Allergies Seasonal Allergies: No Past Medical History Surgeries: Yes (lasix eye surgery, ) Gallbladder Respiratory: No Cardiac: No Neurological: No Reproductive Disorders: Yes Genitourinary: No Gastrointestinal: Yes Gastroesophageal Reflux Musculoskeletal: Yes Gout Endocrine: No HEENT: No Cancer: No Psychosocial: No Integumentary: No Blood Disorders: No Family Medical History No Pertinent Family Hx Physical Exam Vital Signs Vital Signs - First Documented 06/01/18 12:15 Temp 98.4 Pulse 82 Resp 20 B/P (MAP) 153/103 (120) Pulse Ox 97 Capillary Refill : Less Than 3 Seconds Height/Weight/BMI Height: 5'7.00" Weight: 240lbs. 0oz. 108.274948lq; 39.1 BMI Method:Stated General Appearance: WD/WN, mild distress HEENT: PERRL/EOMI, pharynx normal Respiratory: no respiratory distress, no accessory muscle use Cardiovascular: normal peripheral pulses, regular rate, rhythm Peripheral Pulses: 2+ Radial Pulses (R), 2+ Radial Pulses (L) Gastrointestinal: normal bowel sounds, soft, guarding (mild); No rebound; tenderness (epigastric) Extremities: normal inspection, normal capillary refill Neurologic/Psychiatric: alert, oriented x 3, other (anxious) Progress/Results/Core Measures Results/Orders Lab Results Laboratory Tests Test 06/01/18 12:30 Range/Units White Blood Count 9.7 4.3-11.0 10^3/uL Red Blood Count 5.08 4.35-5.85 10^6/uL Hemoglobin 15.4 13.3-17.7 G/DL Hematocrit 43 40-54 % Mean Corpuscular Volume 84 80-99 FL Mean Corpuscular Hemoglobin 30 25-34 PG Mean Corpuscular Hemoglobin Concent 36 32-36 G/DL Red Cell Distribution Width 13.9 10.0-14.5 % Platelet Count 272 130-400 10^3/uL Mean Platelet Volume 9.2 7.4-10.4 FL Neutrophils (%) (Auto) 67 42-75 % Lymphocytes (%) (Auto) 24 12-44 % Monocytes (%) (Auto) 8 0-12 % Eosinophils (%) (Auto) 0 0-10 % Basophils (%) (Auto) 0 0-10 % Neutrophils # (Auto) 6.5 1.8-7.8 X 10^3 Lymphocytes # (Auto) 2.4 1.0-4.0 X 10^3 Monocytes # (Auto) 0.7 0.0-1.0 X 10^3 Eosinophils # (Auto) 0.0 0.0-0.3 10^3/uL Basophils # (Auto) 0.0 0.0-0.1 10^3/uL Sodium Level 135 135-145 MMOL/L Potassium Level 3.7 3.6-5.0 MMOL/L Chloride Level 100 98-107 MMOL/L Carbon Dioxide Level 23 21-32 MMOL/L Anion Gap 12 5-14 MMOL/L Blood Urea Nitrogen 15 7-18 MG/DL Creatinine 0.89 0.60-1.30 MG/DL Estimat Glomerular Filtration Rate > 60 BUN/Creatinine Ratio 17 Glucose Level 161 H 70-105 MG/DL Calcium Level 9.1 8.5-10.1 MG/DL Corrected Calcium 8.9 8.5-10.1 MG/DL Magnesium Level 2.4 1.8-2.4 MG/DL Total Bilirubin 0.9 0.1-1.0 MG/DL Aspartate Amino Transf (AST/SGOT) 28 5-34 U/L Alanine Aminotransferase (ALT/SGPT) 45 0-55 U/L Alkaline Phosphatase 58 40-136 U/L Total Protein 8.1 6.4-8.2 GM/DL Albumin 4.3 3.2-4.5 GM/DL Lipase 33 8-78 U/L My Orders Orders - TRISTIN JACOBSON Cbc With Automated Diff (06/01/18 12:47) Comprehensive Metabolic Panel (06/01/18 12:47) Drug Screen Stat (Urine) (06/01/18 12:47) Lipase (06/01/18 12:47) Magnesium (06/01/18 12:47) Ua Culture If Indicated (06/01/18 12:47) Saline Lock/Iv-Start (06/01/18 12:47) Lactated Ringers (Lr 1000 Ml Iv Solution (06/01/18 13:00) Ketorolac Injection (Toradol Injection) (06/01/18 13:00) Ondansetron Injection (Zofran Injectio (06/01/18 13:00) Promethazine Injection (Phenergan Injec (06/01/18 15:15) Medications Given in ED Current Medications Medications Dose Ordered Sig/Andie Route Start Time Stop Time Status Last Admin Dose Admin Ketorolac Tromethamine 30 mg ONCE ONCE IVP 06/01/18 13:00 06/01/18 13:01 DC 06/01/18 13:11 30 MG Lactated Ringer's 2,000 ml @ 2,000 mls/hr PRN PRN IV 06/01/18 13:00 06/01/18 13:12 2,000 MLS/HR Ondansetron HCl 8 mg ONCE ONCE IVP 06/01/18 13:00 06/01/18 13:01 DC 06/01/18 13:12 8 MG Promethazine HCl 25 mg ONCE ONCE IVP 06/01/18 15:15 06/01/18 15:16 DC 06/01/18 15:09 25 MG Vital Signs/I&O 06/01/18 12:15 Temp 98.4 Pulse 82 Resp 20 B/P (MAP) 153/103 (120) Pulse Ox 97 Blood Pressure Mean: 120 Progress Progress Note #1: Time: 13:00 Progress Note The patient's only mildly dry and appearance. We'll going give him 20 cc/kg bolus of fluids and obtain some labs to include a lipase. We will do 8 of Zofran and 30 of Toradol. If this does not help his symptoms then we can obtain CT of the abdomen. Expect an EGD would be most helpful in his diagnosis. Progress Note #2: Time: 16:49 Progress Note After receiving his full fluid bolus, Zofran and Phenergan he feels like he can do better at home with sublingual nausea medicine and Phenergan. We will get him follow-up with Dr. Gallo for outpatient endoscopy and management of his gastritis. We have offered him a stay for intractable nausea vomiting and IV fluids overnight. I suspect that his primary care doctor who sent him here would be amenable to this however the patient has declined this and says he would rather trying go home and just follow up outpatient tomorrow in the clinic. Consults : Consulting Physician: EVARISTO GALLO MD Consults Notes Discussed case lab and he agrees to see the patient at 10 o'clock tomorrow morning. Departure Impression Primary Impression: Gastritis Qualified Codes: K29.00 - Acute gastritis without bleeding Additional Impression: Nausea and vomiting Qualified Codes: R11.2 - Nausea with vomiting, unspecified Disposition: 01 HOME, SELF-CARE Condition: Improved Departure-Patient Inst. Decision time for Depature: 17:02 Referrals: OCTAVIA DIALLO DO (PCP/Family) Primary Care Physician EVARISTO GALLO MD Patient Instructions: Gastritis (DC) Add. Discharge Instructions: Present to Dr. Gallo office tomorrow before 10:00 AM for an appointment to discuss your symptoms and manage them. Take the Zofran 1 tablet under the tongue every 4 hours as needed to control your nausea. If you need something extra you may take the Phenergan 1 tablet every 6 hours as needed. Use Tylenol and/or Motrin for pain relief. All discharge instructions reviewed with patient and/or family. Voiced understanding. Scripts Promethazine HCl (Promethazine Tablet) 25 Mg Tablet 25 MG PO Q6H PRN for NAUSEA/VOMITING for 7 Days, #10 TAB Prov: TRISTIN JACOBSON 06/01/18 Ondansetron (Ondansetron Odt) 4 Mg Tab.rapdis 4 MG PO Q4H PRN for NAUSEA/VOMITING, #20 TAB 0 Refills Prov: TRISTIN JACOBSON 06/01/18 Copy Copies To 1: EVARISTO GALLO MD, TITUS J Jun 01, 2018 12:58
[2018-06-01] MEDS ORDERED: KETOROLAC 30 MG/ML VIAL IVP ONE (13:00)
[2018-06-01] MEDS ORDERED: LACTATED RINGERS 2,000 ML IV PRN (13:00)
[2018-06-01] MEDS ORDERED: ONDANSETRON 4 MG/2 ML (SDV) Z0FRAN IVP ONE (13:00)
[2018-06-01 13:14] LABS: ALANINE AMINOTRANSFERASE 45 U/L (0-55); ALBUMIN 4.3 GM/DL (3.2-4.5); ALKALINE PHOSPHATASE 58 U/L (40-136); BILIRUBIN,TOTAL 0.9 MG/DL (0.1-1.0); BUN/CREATININE RATIO 17; CALCIUM 9.1 MG/DL (8.5-10.1); CARBON DIOXIDE 23 MMOL/L (21-32); CHLORIDE 100 MMOL/L (98-107); CREATININE SERUM 0.89 MG/DL (0.60-1.30); GFR ESTIMATED > 60; GLUCOSE 161 MG/DL (70-105); LIPASE 33 U/L (8-78); MAGNESIUM 2.4 MG/DL (1.8-2.4); POTASSIUM 3.7 MMOL/L (3.6-5.0); SODIUM 135 MMOL/L (135-145); TOTAL PROTEIN 8.1 GM/DL (6.4-8.2)
[2018-06-01] MEDS ORDERED: PROMETHAZINE INJ 25 MG/ML (PHENERGAN) AMP IVP ONE (15:15)
[2018-06-01] MEDS ORDERED: ONDA4TAB11 PO (17:04)
[2018-06-01] MEDS ORDERED: PROM25TA14 PO (17:04)
[2018-06-01 17:20] VITALS: BP 152/98
== END 2018-06-01 17:20 | disposition home or self-care (01) ==
LOC: EDUNIT# 12:06 → ER 12:07
DX: K29.70 Gastritis, unspecified, without bleeding (principal); K21.9 Gastro-esophageal reflux disease without esophagitis; M10.9 Gout, unspecified; Z98.890 Other specified postprocedural states; Z87.19 Personal history of other diseases of the digestive system; Z87.891 Personal history of nicotine dependence
CPT/HCPCS: 36415; 80053; 83690; 83735; 85025; 96361; 96374; 96375

== ENCOUNTER 2018-06-04 08:45 | Day surgery (SDC) | payer BC ==
[~2018-06-04] VITALS: Ht 170.2 cm; Wt 106.6 kg
[~2018-06-04 08:45] MED LIST changes: +ONDA4TAB11 PO
--- OUTSIDE RECORDS SUMMARY | 2018-06-04 08:49 | XMS REPORT | Continuity of Care Document ---
Author Author [facility] Organization [facility] Address Unknown Phone Unavailable Allergies Active Description Code Type Severity Reaction Onset Reported/Identified Relationship to Patient Clinical Status Yes NO KNOWN DRUG ALLERGIES UNKNOWN NO KNOWN DRUG ALLERG Yes No Known Drug Allergies [id number] Drug Allergy Unknown N/A 10/26/2009 Medications Medication [...] K29.60 OTHER GASTRITIS WITHOUT BLEEDING 06/07/2016 OCTAVIA DAILLO DO Ot K52.89 OTHER SPECIFIED NONINFECTIVE GASTROENTER 06/11/2016 OCTAVIA DIALLO DO Ot K20.8 OTHER ESOPHAGITIS 06/11/2016 OCTAVIA DIALLO DO Ot K29.60 OTHER GASTRITIS WITHOUT BLEEDING 06/11/2016 GELLENDER OCTAVIA NOBLE Ot K52.89 OTHER SPECIFIED NONINFECTIVE GASTROENTER 06/14/2016 MICHELLELENDER OCTAVIA NOBLE Ot K20.8 OTHER ESOPHAGITIS 06/14/2016 GELLENDER DOOCTAVIA Ot K29.60 OTHER GASTRITIS WITHOUT BLEEDING 06/14/2016 GELLENDER OCTAVIA NOBLE Ot K52.89 OTHER SPECIFIED NONINFECTIVE GASTROENTER 05/27/2018 [facility] W 535.0 ACUTE GASTRITIS 05/27/2018 [facility] A09 INFECTIOUS GASTROENTERITIS AND COLITIS, UNSPECIFIED Procedures There is no data. Results Test [...] NRG Blood erythrocyte morphology finding identification NORMAL NRG Serum Helicobacter pylori antibody assay (units/volume) - [...] 5-8.5 Urine-Protein Negative Negative Urine-RBC 0-2/HPF Urine-Specific [place] 1.010 1.000-1.030 Urine-WBC Rare/HPF Urobilinogen 0.2 0.2-1.0 [...] - 05/27/18 12:06 Lipase 27 U/L 7-59 Complete blood count (CBC) with automated white blood cell (WBC) differential - 06/01/18 12:30 Blood leukocytes automated count (number/volume) 9.7 10*3/uL 4.3-11.0 Blood erythrocytes automated count (number/volume) 5.08 10*6/uL 4.35-5.85 Venous blood hemoglobin measurement (mass/volume) 15.4 g/dL 13.3-17.7 Blood hematocrit (volume fraction) 43 % 40-54 Automated erythrocyte mean corpuscular volume 84 [foz_us] 80-99 Automated erythrocyte mean corpuscular hemoglobin (mass per erythrocyte) 30 pg 25-34 Automated erythrocyte mean corpuscular hemoglobin concentration measurement ( mass/volume) 36 g/dL 32-36 Automated erythrocyte distribution width ratio 13.9 % 10.0-14.5 Automated blood platelet count (count/volume) 272 10*3/uL 130-400 Automated blood platelet mean volume measurement 9.2 [foz_us] 7.4-10.4 Automated blood neutrophils/100 leukocytes 67 % 42-75 Automated blood lymphocytes/100 leukocytes 24 % 12-44 Blood monocytes/100 leukocytes 8 % 0-12 Automated blood eosinophils/100 leukocytes 0 % 0-10 Automated blood basophils/100 leukocytes 0 % 0-10 Blood neutrophils automated count (number/volume) 6.5 10*3 1.8-7.8 Blood lymphocytes automated count (number/volume) 2.4 10*3 1.0-4.0 Blood monocytes automated count (number/volume) 0.7 10*3 0.0-1.0 Automated eosinophil count 0.0 10*3/uL 0.0-0.3 Automated blood basophil count (count/volume) 0.0 10*3/uL 0.0-0.1 Comprehensive metabolic panel - 06/01/18 12:30 Serum or plasma sodium measurement (moles/volume) 135 mmol/L 135-145 Serum or plasma potassium measurement (moles/volume) 3.7 mmol/L 3.6-5.0 Serum or plasma chloride measurement (moles/volume) 100 mmol/L 98-107 Carbon dioxide 23 mmol/L 21-32 Serum or plasma anion gap determination (moles/volume) 12 mmol/L 5-14 Serum or plasma urea nitrogen measurement (mass/volume) 15 mg/dL 7-18 Serum or plasma creatinine measurement (mass/volume) 0.89 mg/dL 0.60-1.30 Serum or plasma urea nitrogen/creatinine mass ratio 17 NRG Serum or plasma creatinine measurement with calculation of estimated glomerular filtration rate > NRG Serum or plasma glucose measurement (mass/volume) 161 mg/dL 70-105 Serum or plasma calcium measurement (mass/volume) 9.1 mg/dL 8.5-10.1 Serum or plasma total bilirubin measurement (mass/volume) 0.9 mg/dL 0.1-1.0 Serum or plasma alkaline phosphatase measurement (enzymatic activity/volume) 58 U/L 40-136 Serum or plasma aspartate aminotransferase measurement (enzymatic activity/ volume) 28 U/L 5-34 Serum or plasma alanine aminotransferase measurement (enzymatic activity/volume ) 45 U/L 0-55 Serum or plasma protein measurement (mass/volume) 8.1 g/dL 6.4-8.2 Serum or plasma albumin measurement (mass/volume) 4.3 g/dL 3.2-4.5 CALCIUM CORRECTED 8.9 mg/dL 8.5-10.1 Magnesium - 06/01/18 12:30 Magnesium 2.4 mg/dL 1.8-2.4 Lipase - 06/01/18 12:30 Lipase 33 U/L 8-78 Encounters ACCT No. Visit Date/Time Discharge Status Pt. Type Provider Facility Loc./Unit Complaint [id number] 06/01/2018 12:07:00 06/01/2018 17:20:00 DIS Emergency INDIRA ESCOBEDO, TRISTIN Infante [facility] ER N/V [id number] 06/05/2016 23:35:00 06/07/2016 10:50:00 DIS Outpatient OCTAVIA DIALLO DO [facility] SDC INTRACTABLE ABD PAIN [id number] 01/19/2015 08:25:00 01/19/2015 23:59:59 CLS Outpatient TREVOR MCGARRY DO [facility] CARD ABD PAIN [id number] 01/09/2015 16:18:00 01/09/2015 18:26:00 DIS Emergency EDUARDO IRENE APRN [facility] ER VOMITING [id number] 05/27/2018 11:48:00 05/27/2018 14:12:00 DIS Outpatient [facility] ER [id number] 05/14/2016 09:07:00 05/14/2016 23:59:00 DIS Outpatient ROMERO SIDDIQUI [id number] 05/27/2018 12:02:11 Document Registration [id number] 01/19/2015 08:20:22 ACT Document Registration
[2018-06-04 08:50] VITALS: BP 145/100
[2018-06-04] MEDS ORDERED: NS IV 500 ML 500 ML ONE (08:52)
[2018-06-04] MEDS ORDERED: NS IV 500 ML 500 ML IV PRN (08:57)
[2018-06-04] MEDS ORDERED: HURRICAINE EXT TUBE (BENZOCAINE) XX PRN (09:00)
[2018-06-04] MEDS ORDERED: OMEP20CA12 PO (09:26)
[2018-06-04] MEDS ORDERED: fentaNYL INJECTION 100 MCG/2 ML AMP ONE (09:28)
[2018-06-04] MEDS ORDERED: LISI30TA5 PO (09:28)
[2018-06-04] MEDS ORDERED: HURRICAINE EXT TUBE (BENZOCAINE) ONE (09:28)
[2018-06-04] MEDS ORDERED: MIDAZOLAM 2 MG/2 ML (VERSED) VIAL ONE ×4 (09:28)
[2018-06-04] MEDS ORDERED: MIDAZOLAM 2 MG/2 ML (VERSED) VIAL IVP ONE (09:30)
[2018-06-04] MEDS ORDERED: fentaNYL INJECTION 100 MCG/2 ML AMP IVP ONE (09:30)
[2018-06-04] MEDS ORDERED: HYDR-3812 PO (09:31)
--- NOTE | 2018-06-04 09:43 | Conscious Sedation/ASA ---
Conscious Sedation Pre-Proced Time 09:20 ASA Score 2 For ASA 3 and 4: Consider anesthesia and medical clearance. Also, for patients with a history of failed moderate sedation consider anesthesia. Airway Lungs Heart ASA score ASA 1: a normal healthy patient ASA 2: a patient with a mild systemic disease (mid diabetes, controlled hypertension, obesity ASA 3: a patient with a severe systemic disease that limits activity (angina , COPD, prior Myocardial infarction) ASA 4: a patient with an incapacitating disease that is a constant threat to life (CHF, renal failure) ASA 5: a moribund patient not expected to survive 24 hrs. (ruptured aneurysm) ASA 6: a declared brain patient whose organs are being harvested. For emergent operations, add the letter E after the classification Mallampati Classification Grade 2 Sedation Plan Discussed options with patient/fam The patient is an appropriate candidate to undergo the planned procedure, sedation, and anesthesia. The patient immediately re-assessed prior to indication. EVARISTO GALLO MD Jun 04, 2018 09:43
--- NOTE | 2018-06-04 09:46 | Endo Procedure Record ---
Endo Procedure Report Date of Procedure Last Colonoscopy: No Jun 04, 2018 Surgeon (s) EVARISTO GALLO MD Post Procedure/Op Diagnosis grade 2 esophagitis. Severe distal gastritis. Multiple antral and duodenal erosions Procedure Performed EGD with antral biopsy Description of Procedure Anesthesia Type: Conscious Sedation Specimen(s) collected/removed antral mucosa for H. pylori Description of the Procedure Indication for the procedure: This gentleman came in for an upper endoscopy to investigate ongoing epigastric pain with nausea and occasional vomiting. Informed consent was obtained after reviewing the procedure in detail. Description of the procedure: He was placed in left lateral decubitus position and his vital signs were monitored. Conscious sedation was achieved using Versed and fentanyl. The flexible gastroscope was then introduced down the esophagus, past the stomach, into the proximal duodenum. Findings: Esophagus: Grade 2 esophagitis with a short hiatal hernia. Stomach: Multiple antral erosions and severe distal gastritis were found. Duodenum: Multiple duodenal erosions were found along the first part An antral biopsy was obtained for Helicobacter status. He tolerated the procedure well and was taken back to the nursing area in a stable condition. Impression: Epigastric pain and nausea and vomiting. Esophagitis, severe distal gastritis, gastric and antral erosions. Copy Copies To 1: OCTAVIA DIALLO XAVIER M MD Jun 04, 2018 09:46
--- NOTE | 2018-06-04 09:48 | Discharge Inst-Simple/Standard ---
Discharge Inst-Standard Discharge Medications New, Converted or Re-Newed RX: Other Patient Instructions/Follow Up Plan of Care/Instructions/FU: please schedule a gastric emptying study as an outpatient Activity as Tolerated: Yes Discharge Diet: No Restrictions EVARISTO GALLO MD Jun 04, 2018 09:48
[2018-06-04 10:05] VITALS: BP 137/92
[2018-06-04 10:35] VITALS: BP 124/84
[2018-06-04 10:50] VITALS: BP 124/84
== END 2018-06-04 10:50 | disposition home or self-care (01) ==
LOC: ENDO 08:45
PROVIDERS: ATTEND Surgery
DX: K20.9 Esophagitis, unspecified (principal); K29.70 Gastritis, unspecified, without bleeding; K26.9 Duodenal ulcer, unspecified as acute or chronic, without hemorrhage or perforation; K25.9 Gastric ulcer, unspecified as acute or chronic, without hemorrhage or perforation

== ENCOUNTER → 2018-06-09 | Outpatient (CLI) | payer BC ==
[~2018-06-09] MED LIST changes: +HYDR-3812 PO; +LISI30TA5 PO; +OMEP20CA12 PO
--- NOTE | 2018-06-09 20:17 | Diagnostic Imaging Report ---
INDICATION: Gastroparesis. Patient was administered 1.1 mCi technetium 99m sulfur colloid labeled to a test meal and imaging of the abdomen was performed. Time of half emptying is calculated to be approximately 64 minutes. Normal values are typically 30-90 minutes. At one hour, 49% of the test meal had emptied. At 2 hours, 72% of the test meal had emptied. At 3 hours, 80% of the test meal had emptied. IMPRESSION: Unremarkable gastric emptying study. Dictated by: Dictated on workstation # [id number]
== END ==
LOC: CARD 09:07
PROVIDERS: ATTEND Surgery
DX: K31.84 Gastroparesis (principal)
CPT/HCPCS: 78264

== ENCOUNTER 2019-01-01 14:40 | Outpatient (CLI) | payer BC ==
[~2019-01-01] VITALS: Ht 170.2 cm; Wt 106.6 kg
[~2019-01-01 14:40] MED LIST changes: -OMEP20CA12 PO; +OMEP20CA13 PO
== END 2019-01-01 14:58 | disposition home or self-care (01) ==
LOC: PREOP 14:40
PROVIDERS: ATTEND Surgery
DX: Z01.818 Encounter for other preprocedural examination (principal)

== ENCOUNTER → 2019-01-11 | Day surgery (SDC) | payer BC ==
[~2019-01-11] VITALS: Ht 170.2 cm; Wt 106.6 kg
[~2019-01-11] MED LIST changes: +HURRICAINE EXT TUBE (BENZOCAINE) XX PRN; +LACTATED RINGERS 1,000 ML IV ONE; +LACTATED RINGERS 1,000 ML IV STA; +MIDAZOLAM 2 MG/2 ML (VERSED) VIAL ONE; +PROPOFOL INJECTION 50 ML IV ONE
--- NOTE | 2019-01-11 11:27 | Progress Note-Pre Operative ---
Pre-Operative Progress Note H&P Reviewed The H&P was reviewed, patient examined and no changes noted. Time Seen by Provider: 11:25 Date H&P Reviewed: Jan 11, 2019 Time H&P Reviewed: 11:26 Pre-Operative Diagnosis: Chronic Gastritis, Screening Colonoscopy DEN SCHULTZ DO Jan 11, 2019 11:27
[2019-01-11 11:32] VITALS: BP 124/96
[2019-01-11 12:05] VITALS: BP 154/101
--- NOTE | 2019-01-11 12:09 | Progress Note-Post Operative ---
Post-Operative Progess Note Surgeon (s)/Viscosity Worker (s) Surgeon DEN SCHULTZ DO Viscosity Worker: none Pre-Operative Diagnosis Chronic Gastritis, Screening Colonoscopy Post-Operative Diagnosis Gastritis Esophagitis Colon polyps Diverticula Internal Hemorrhoids Procedure & Operative Findings Date of Procedure 01/11/19 Procedure Performed/Findings EGD with bx Colon with snare Anesthesia Type IV sedation by DIRECTOR INSTRUMENTATION Estimated Blood Loss Estimated blood loss (mL): scant Specimens/Packing Specimens Removed Antral bx Body of stomach bx GE jxn bx Ascending colon polyp x 2 Rectal polyp DEN SCHULTZ DO Jan 11, 2019 12:09
[2019-01-11 12:10] VITALS: BP 157/105
--- NOTE | 2019-01-11 12:10 | Endoscopy Discharge Instruct ---
Endo Procedure/Findings Findings 1.: Gastritis 2.: Polyp 3.: Diverticulosis 4.: Internal Hemorrhoids Discharge Instructions - Activity: You might feel a little sleepy until tomorrow. This is due to the medicine you received to relax you. Until tomorrow, you should: NOT drive a car, operate machinery or power tools. NOT drink any alcoholic beverages. NOT make any important decisions or sign importortant papers. Do not return to work until tomorrow, unless otherwise instructed. Resume previo us activities tomorrow. Diet: Start by taking liquids. If you tolerate liquids, advance to solid food. Make an appointment for one week Notify Physician - If you experience excessive bleeding, unusual abdominal pain, fever, or chest pain, contact your doctor immediately. Follow-Up: - I have received and understand the above instructions and will call my doctor if I have any further questions. Patient Signature Date Nurse Signature Other (Relationship) DEN SCHULTZ DO Jan 11, 2019 12:10
--- NOTE | 2019-01-11 18:54 | OPERATIVE REPORT ---
DATE OF SERVICE: 01/11/2019 PREOPERATIVE DIAGNOSES: 1. Chronic gastritis. 2. Screening colonoscopy. POSTOPERATIVE DIAGNOSES: 1. Gastritis. 2. Esophagitis. 3. Small hiatal hernia. 4. Colon polyps. 5. Diverticula. 6. Internal hemorrhoids. PROCEDURES: 1. EGD with biopsy. 2. Colonoscopy with snare polypectomy. SURGEON: Ryan Zhang DO CHARGE ACCOUNT AUTHORIZER: None. ANESTHESIA: IV sedation by the HOSPITAL NURSE. SPECIMEN: 1. Biopsy from the antrum. 2. Biopsy of the stomach. 3. Biopsy from the GE junction and then 2 ascending colon polyps and 2 polyps in the rectum. BLOOD LOSS: Scant. FLUIDS: Per anesthesia. POSTOPERATIVE CONDITION: Stable. INDICATION FOR PROCEDURE: The patient is a 48-year-old male who has some chronic gastritis, needed an EGD and as he is 48 so we did a screening colonoscopy. FINDINGS: The patient had some gastritis, esophagitis, small hiatal hernia. In the colon, he had noted polyps, 2 in the ascending colon, 2 in the rectum. He also had some diverticula and some internal hemorrhoids. PROCEDURE NOTE: After informed consent was obtained, the patient was brought to the endoscopy suite and placed in the left lateral decubitus position. He was administered IV sedation by the HOSPITAL NURSE, who then monitored his vitals the entire time, heart rate, blood pressure and pulse ox. Scope was inserted down the mouth through the esophagus into the stomach, saw some gastritis, took a picture. Pushed into the duodenum, duodenum looked good, took a picture and then pulled back into the antrum, did a biopsy of the antrum and then pulled back a little bit more, did a biopsy of body of stomach, retroflexed the scope, saw small hiatal hernia, took a picture of this and then pulled the scope into the esophagus and right at the GE junction, did a biopsy. Rest of the esophagus looked good, pulled the scope up the esophagus and out the mouth. Switched the camera, switched gloves, went down below, started the colonoscopy, pushed the scope all the way into about 150 cm, on the way in noted some diverticula, took picture of this, able to get to the cecum, took a picture of appendiceal orifice, noted the ileocecal valve and then slowly withdrew the scope, insufflating to look circumferentially at the leo, looking the cecum, up the ascending colon. In the ascending colon, saw 2 polyps, did snare polypectomies of these and then continued up to the hepatic flexure, down the transverse colon, splenic flexure, into the descending colon then down in the sigmoid. Again, throughout here, saw a diverticula and into the rectum and in the rectum, saw 2 polyps, did snare polypectomies of these as well and then retroflexed the scope in the rectal vault, saw some internal hemorrhoids, took a picture of this and then removed the scope. The patient was recovered in an endoscopy suite. He tolerated the procedure well. Job ID: [id number] DocumentID: [id number] Dictated Date: 01/11/2019 13:53:30 Certified Medication Technician Date: 01/11/2019 18:52:27 Dictated By: RYAN ZHANG DO
== END ==
LOC: ENDO 10:38
PROVIDERS: ATTEND Surgery
DX: Z12.11 Encounter for screening for malignant neoplasm of colon (principal); D12.8 Benign neoplasm of rectum; D12.2 Benign neoplasm of ascending colon; K29.50 Unspecified chronic gastritis without bleeding; K21.0 Gastro-esophageal reflux disease with esophagitis; K44.9 Diaphragmatic hernia without obstruction or gangrene; K57.30 Diverticulosis of large intestine without perforation or abscess without bleeding; K64.8 Other hemorrhoids; I10 Essential (primary) hypertension; Z90.49 Acquired absence of other specified parts of digestive tract; Z87.891 Personal history of nicotine dependence; Z83.3 Family history of diabetes mellitus
CPT/HCPCS: 88305